=== PATIENT | male | born 1945 | race Caucasian/White ===

== ENCOUNTER → 2016-12-29 | Outpatient (CLI) | payer OTHER, MEDICAID ==
[~2016-12-29] MED LIST: GADOBUTROL 10 ML VIAL IVP ONE; MIDAZOLAM 2 MG/2 ML VIAL ONE; ONDANSETRON 4 MG/2 ML VIAL ONE; fentaNYL 100 MCG/2 ML INJ ONE
[2016-12-29 16:26] VITALS: BP 113/72; RESP 18; O2SAT 94
== END ==
LOC: FIMAGING 13:08
PROVIDERS: ATTEND Neurological Surgery
DX: G20 Parkinson's disease (principal)
CPT/HCPCS: 70552; A9585; J2250; J2405; J3010

== ENCOUNTER 2017-01-05 05:44 | Inpatient (IN) | payer OTHER, MEDICAID ==
[2017-01-05] MEDS ORDERED: CEFUROXIME 1,500 MG in NS 50 ML IV ONE (06:05)
[2017-01-05] MEDS ORDERED: LIDOCAINE 1% 2 ML INJ ID PRN (06:13)
[2017-01-05] MEDS ORDERED: LR 1,000 ML IV ONE (06:13)
--- NOTE | 2017-01-05 06:46 | PDHPUP ---
History & Physical Update H&P update statement: This history and physical update is based on an assessment of the patient which was completed after admission or registration (within 24 hours), but prior to the surgery/procedure.
[2017-01-05] MEDS ORDERED: CHLORHEXIDINE GLUC HIBICLENS 118 ML BTL TP ONE (06:48)
[2017-01-05] MEDS ORDERED: THROMBIN (BOVINE) 20,000 UNIT VIAL TP ONE (06:49)
[2017-01-05] MEDS ORDERED: LIDOCAINE 2% JELLY 20 ML (UROJECT) ONE (06:49)
[2017-01-05] MEDS ORDERED: GENTAMICIN SULFATE 80 MG/2 ML VIAL ONE (06:50)
[2017-01-05] MEDS ORDERED: POVIDONE-IODINE 30 GM OINTTUBE TP ONE (06:50)
[2017-01-05 07:06] LABS: % IMMATURE GRANULYOCYTES 0.2 % (0.0-1.1); ABSOLUTE IMMATURE GRANULOCYTES 0.01 10^3/uL (0.00-0.10); ADD DIFF? NO; ADD MORPH? NO; ADD SCAN? NO; ATYPICAL LYMPHOCYTE FLAG 0 (0-99); FRAGMENT RBC FLAG 0 (0-99); HEMATOCRIT 41.6 % (40.0-51.0); HEMOGLOBIN 14.5 g/dL (13.7-17.5); LEFT SHIFT FLG 0 (0-99); LIPEMIA HEMOLYSIS FLAG 90 (0-99); MEAN CELL HEMOGLOBIN 34.6 pg (27.9-34.1); MEAN CELL HEMOGLOBIN CONCENTR. 34.9 g/dL (32.4-36.7); MEAN CELL VOLUME 99.3 fL (81.5-99.8); MEAN PLATELET VOLUME 9.4 fL (8.7-11.7); PLATELET CLUMPS FLAG 0 (0-99); PLATELET COUNT 245 10^3/uL (150-400); RED BLOOD CELL COUNT 4.19 10^6/uL (4.40-6.38); RED CELL DISTRIBUTION WIDTH 12.2 % (11.5-15.2)
--- NOTE | 2017-01-05 07:06 | PDANEPAE ---
ANE History of Present Illness 71 yo M w Parkinson's Dx here for DBS lead placement ANE Past Medical History - Cardiovascular History Hx Hypertension: No Hx Arrhythmias: No Hx Chest Pain: No Hx Coronary Artery / Peripheral Vascular Disease: No Hx CHF / Valvular Disease: No Hx Palpitations: No Cardiovascular History Comment: denies - Pulmonary History Hx COPD: No Hx Asthma/Reactive Airway Disease: No Hx Recent Upper Respiratory Infection: No Hx Oxygen in Use at Home: No Hx Sleep Apnea: No Sleep Apnea Screening Result - Last Documented: Negative Pulmonary History Comment: denies - Neurologic History Hx Cerebrovascular Accident: No Hx Seizures: No Hx Dementia: No Neurologic History Comment: Parkinson's dx Jan 2016. on NO Rx since . Tremor/stiffness L hand. - Endocrine History Hx Diabetes: No Endocrine History Comment: denies - Renal History Hx Renal Disorders: Yes Renal History Comment: BPH nocturia 2-4x/nite. - Liver History Hx Hepatic Disorders: No Hepatic History Comment: denies - Neurological & Psychiatric Hx Hx Neurological and Psychiatric Disorders: Yes Neurological / Psychiatric History Comment: ruptured lumbar L5 in 1975. Sees chiropractor. 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 inguinal hernia repair 2001 ANE Review of Systems - Exercise capacity Exercise capacity: >=4 METS METS (RN): 5 METS ANE Patient History - Allergies Allergies/Adverse Reactions: No Known Allergies Allergy (Verified 01/02/17 12:25) - Home Medications Home medications: home medication list seen and reviewed Home Medications: Ascorbic Acid [Vitamin C 500 mg (*)] 500 mg PO DAILY 12/29/16 [Last Taken ] Calcium Carb W/Vit D [Calcium Carb W/Vit D 500/200 (*)] 500 mg PO DAILY [Last Taken 12/28/16] Calcium Polycarbophil [FIBERCON] 625 mg PO DAILY PRN 12/29/16 [Last Taken ] Ferrous Sulfate [High Potency Iron] 134 mg PO DAILY 12/29/16 [Last Taken ] Herbals/Supplements -Info Only 1 ea PO DAILY 12/29/16 [Last Taken Unknown] Magnesium Oxide [Magnesium Oxide 500 mg] 500 mg PO DAILY 12/29/16 [Last Taken ] Multivitamins [Multivitamin (*)] 1 each PO DAILY 12/29/16 [Last Taken 12/28/16] [place]-3 Fatty Acids [Fish Oil 1000 mg (*)] 1,000 mg PO DAILY 12/29/16 [Last Taken 12/28/16] Sennosides [Senokot] 8.6 mg PO DAILY PRN 12/29/16 [Last Taken 12/28/16] - NPO status NPO Status: no food or drink >8 hours NPO Since - Liquids (Date): 01/04/17 NPO Since - Liquids (Time): 22:00 NPO Since - Solids (Date): 01/04/17 NPO Since - Solids (Time): 20:00 - Anes Hx Anes Hx: no prior problems - Smoking Hx Smoking Status: Never smoked - Alcohol Use Alcohol Use: None - Family Anes Hx Family Anes Hx: none Family Hx Anesthesia Complications: denies ANE Labs/Vital Signs - Labs Result Diagrams: 01/05/17 06:05 01/05/17 06:05 - Vital Signs Blood Pressure: 130/80 Heart Rate: 68 Respiratory Rate: 18 O2 Sat (%): 100 Height: 184.15 cm Weight: 64.41 kg ANE Physical Exam - Airway Neck exam: FROM Mallampati Score: Class 2 Mouth exam: normal dental/mouth exam - Pulmonary Pulmonary: no respiratory distress, clear to auscultation - Cardiovascular Cardiovascular: regular rate and rhythym, no murmur, rub, or gallop - ASA Status ASA Status: III ANE Anesthesia Plan Anesthesia Plan: MAC Lines/Monitors: arterial line
[2017-01-05] MEDS ORDERED: fentaNYL 100 MCG/2 ML INJ ONE (07:12)
[2017-01-05] MEDS ORDERED: PROPOFOL 200 MG/20 ML VIAL ONE (07:12)
[2017-01-05 07:15] LABS: INR 0.96 (0.83-1.16); PROTIME(PATIENT) 12.7 SEC (12.0-15.0)
[2017-01-05 07:16] LABS: APTT 26.1 SEC (23.0-38.0)
[2017-01-05 07:21] LABS: ANION GAP 11 mEq/L (8-16); CALCIUM 9.7 mg/dL (8.5-10.4); CARBON DIOXIDE 25 mEq/l (22-31); CHLORIDE 103 mEq/L (97-110); CREATININE 0.9 mg/dL (0.7-1.3); GLOMERULAR FILTRATION RATE > 60; GLUCOSE 87 mg/dL (70-100); POTASSIUM 4.2 mEq/L (3.5-5.2); SODIUM 139 mEq/L (134-144)
[2017-01-05] MEDS: BUPIVACAINE/EPI 0.25% 30 ML SDV ONE ×2 (07:30→08:05)
[2017-01-05] MEDS ORDERED: ACETAMINOPHEN 500 MG TAB PO PRN (10:40)
[2017-01-05] MEDS ORDERED: ONDANSETRON 4 MG/2 ML VIAL IVP PRN (10:40)
[2017-01-05] MEDS ORDERED: fentaNYL 100 MCG/2 ML INJ IVP PRN (10:40)
[2017-01-05] MEDS ORDERED: OXYCODONE/APAP 5/325 TAB PO PRN (10:40)
[2017-01-05] MEDS ORDERED: NALOXONE HCL 0.4 MG/ML INJ IVP PRN (10:40)
[2017-01-05] MEDS ORDERED: POLYETHYLENE GLYCOL 3350 17 GM PKT PO PRN (11:00)
[2017-01-05] MEDS ORDERED: LACTULOSE 20 GM/30 ML UDCUP PO PRN (11:00)
[2017-01-05] MEDS ORDERED: NS W/ 20 KCl/L 1,000 ML IV SCH (11:00)
[2017-01-05] MEDS ORDERED: BISACODYL 10 MG SUPP PR PRN (11:00)
[2017-01-05] MEDS ORDERED: MAGNESIUM HYDROXIDE 30 ML UDCUP PO PRN (11:00)
[2017-01-05] MEDS ORDERED: HYDROCODONE/APAP 5/325 TAB PO PRN (11:04)
--- NOTE | 2017-01-05 11:05 | POSTANESTH ---
Post Anesthetic Evaluation Cardiovascular Status: Normal, Stable, Similar to Pre-Op Cond Respiratory Status: Normal, Stable, Similar to Pre-op Cond. Level of Consciousness/Mental Status: Can Participate in Eval, Alert and Oriented Pain Control: Adequate, Prn Tx Ordered Nausea/Vomiting Control: Adequate, Prn Tx Ordered Complications Possibly Related to Anesthesia: None Noted
[2017-01-05] MEDS ORDERED: ONDANSETRON 4 MG/2 ML VIAL ONE (11:18)
--- NOTE | 2017-01-05 12:16 | POSTOPPROG ---
Post Op Note Date of Operation: 01/05/17 Surgeon: Katina Cortez Structural Steel Worker Apprentice: Chery Ch PA-C Anesthesiologist: Phill Pedraza MD Anesthesia: IV Sedation Pre-op Diagnosis: Parkinson's Disease Post-op Diagnosis: Parkinson's Disease Procedure: Right STN DBS lead placement Inf/Abcess present in the surg proc area at time of surgery?: No Depth: Deep Incisional (Fascial) EBL: Minimal Plan Plan: 71 yo male s/p right STN DBS lead placement - neuro checks - pain control - postop head CT stable - maintain SBP < 140 - dispo: home tomorrow Exam Awake. alert. PERRL Speech fluent Muscle strength full Incision with dressing c/d/i
[2017-01-05] MEDS: ACETAMINOPHEN 325 MG TAB PO PRN ×2 (12:59→17:02)
--- NOTE | 2017-01-05 13:37 | GOP ---
[f rep st] OPERATIVE REPORT DATE OF OPERATION: 01/05/2017 SURGEON: Katina Cortez DO PREOPERATIVE DIAGNOSIS: Parkinson disease, tremor predominant. POSTOPERATIVE DIAGNOSIS: Parkinson disease, tremor predominant. PROCEDURE PERFORMED: 1. Right deep brain stimulator lead placement with Medtronic 3389 lead to subthalamic nucleus. 2. Stealth stereotaxis. FELT HAT MELLOWING MACHINE OPERATOR None. MICROELECTRODE RECORDING: Chery Salvador PA-C. Please refer to Chery's dictation for all dariela roelectrode recording. FINDINGS: SPECIMENS: None. ESTIMATED BLOOD LOSS: 10 mL. INDICATIONS: This is a 71-year-old male with a tremor-predominant Parkinson disease, who is intoler ant to medications, who underwent a multidisciplinary evaluation for STN deep brain stimulator lead placement. He was found to be a good candidate, elected to move forward with staged unilateral right for left body for first-stage DBS. He was identified, consented. Sites were marked. DESCRIPTION OF PROCEDURE: Brought to the operating room and anesthetized under local with MAC. Pin sites were anesthetized with 0.25% Marcaine with epinephrine, using povidone iodine ointment, and we stereotactically placed the [place] frame, and then affixed him to the table and brought in the O-a rm 2. Used the O-arm 2 with a localizer box to create a localizer CT, which was merged to the preope rative plan in the stealth frame length software. His ACPC was 27.11. His entry point was an X of 36 .23, a Y of 39.40, Z of 61.19, corresponding to 21 degrees off midsagittal, 56.5 degrees off midaxia l. The target coordinates were X of 10.5, Y of -4.72, and a Z of -5.30. With the registration the pr edicted error was 0.5 mm, and the [place]ell frame coordinates were an X of 87, a Y of 85, a Z of 108.5 , a ring of 72 degrees, an arc of 73 degrees. These were all set and triple checked by all providers in the room. He was prepped and draped in the usual sterile fashion. Incision site was marked using the [place] frame coordinates, and a half-bedolla incision was anesthetized with 0.25% Marcaine with e pinephrine. A half-bedolla incision was made with a 10 blade, and periosteal elevator was used to elevate the perio steum. We then marked the bone opening using the cannula and the Leksell frame coordinates, and dril led a air force pilot hole, then a 14 mm bur hole. Waxed the bone edges. Verified we were in the appropriate p osition. Placed the stem lock device, and locked it in place using the 5 mm Synthes screws. Verified the clipping mechanism, clipped and locked. Opened the dura sharply with an 11 blade. Hemostasis wa s obtained with bipolar cautery. Created a corticotomy with bipolar, and then inserted the center el ectrode, cannula, and stylet, and placed Gelfoam and DuraSeal. Removed the stylet. Placed the electr ode and performed microelectrode recordings. We got approximately 3 mm of STN and entered approximat jdud 1.5 mm above target, suggesting some brain shift. An anterior tract was then selected, 2 mm ante rior, we drove back up to target. We removed the Gelfoam and DuraSeal. Introduced the anterior cannu la and stylet. Removed the stylet, placed the electrode, and leaving the center intact to protect th e integrity, performed another microelectrode. Did not get much of the STN at this point in time at all, and elected to attempt a posterior tract, so drove back up to target. Removed the Gelfoam and DuraSeal. Removed the electrode. Removed the anterior cannula and stylet, and placed it in the poste rior tract, and then removed the stylet. Placed the electrode. Performed another microelectrode mehrdad rding. Got excellent STN with good driving in the posterior tract, with no side effects. At macro st im got approximately 5-1/2 of STN. Elected to place and test the lead here, so initially placing the bottom of the bottom contact where we got out of STN at -4-1/2 below. Given the brain shift, this w as expected. Please refer to the SHOAIB recording, but we did, however, end up leaving the bottom of th e bottom contact approximately 1 below, because we were getting medial eye deviation, suggesting a m edial lead at the more inferior contact. We got tremor control at 1 V at every single contact, and o ur threshold for medial eye deviation on the 0 contact was 3.5 V. Low to no other side effects, and elected to leave the lead here. Took an x-ray with the bombsites, then retracted the stylet, placed the clipping mechanism, clipped and locked the device. Copiously irrigated with gentamicin infused saline. Marked the lead. Removed the internal stylette. Brought the lead down and out. Placed it int o the groove, and placed the stim lock cap. Took another x-ray with the bombsites, verified it was i n good position. Performed a stereotactic spin with the O-arm 2, and then tunneled posteriorly with a periosteal elevator. Anesthetized the stab incision posteriorly with 0.5% Marcaine with epinephrine, and stab incision wa s made with 11 blade. Tunneled posterior to anterior. Placed the boot over the lead, placed the exte nsion over the lead, using the torque wrench at each contact, protecting the contact, locked them in place. Brought the boot over the lead extension complex, tied into position with 2-0 silk ties at 2 positions. Brought the extension posterior and out the wound. Cut it at the skin. Coiled the lead p osterior and around the incision. Took a final x-ray. The lead had not migrated. Copiously irrigated with a liter of gentamicin infused saline. Closed the galea with 2-0 Vicryl pop- offs, the skin with a 3-0 running nylon. The wound was dressed with Xeroform and Telfa. The frame wa s removed and the head wrap was placed. The patient tolerated procedure well. The stereotactic CT revealed exactly what we expected, which w as the lead was 2 mm posterior where we elected to leave the final lead, and approximately a millime ter to a millimeter and a half more medial than initially expected, but well within stereotactic acc uracy. Again, his intraoperative testing was excellent. We had a very programmable lead. The patien t tolerated procedure well. There were no complications. FLUIDS: 1 L crystalloid. URINE OUTPUT: 250 mL. DRAINS: None. COMPLICATIONS: None. /[id number]/MODL
[2017-01-05] MEDS: CEFUROXIME 1,500 MG in NS 50 ML IV SCH ×2 (14:15→21:10)
--- NOTE | 2017-01-05 15:01 | GPN ---
[f rep st] PROCEDURE NOTE DATE OF PROCEDURE: 01/05/2017 PREOPERATIVE DIAGNOSIS: Parkinson disease. POSTOPERATIVE DIAGNOSIS: Parkinson disease. PROCEDURE PERFORMED: Intraoperative functional subcortical mapping by microelectrode recording and stimulation. COMPLICATIONS: None. INDICATION FOR PROCEDURE: Determination of optimal electrode lead placement for deep brain stimulat ion therapy for Parkinson disease to the STN. DESCRIPTION OF PROCEDURE: Following the incision, a rivka hole was drilled on the right side. The a rc was then arranged with the following coordinates of X 87, Y 85, Z 108.5, ring 72 and arc 73. The recording microelectrode was then slowly advanced into the brain using a central tract. There was evidence of entering STN at 1.5 above target and exiting at 1.5 below target. We entered SNR at 3.1 below target. Since we only achieved STN for approximately 3 mm, we decided to proceed with an ant erior tract. With the microelectrode advancing through the anterior tract, there was no evidence of STN. We then proceeded with the posterior tract. There was evidence of entering STN at 1.2 above target. There was change in stimulation with passive range of motion of the shoulder at 0.7 below t arget and with elbow extension at 2.5 below target. There was evidence of entering SNR at 5 below t arget. With these recordings, we elected to proceed with macrostimulation stimulating at 1 below ta rget. At amplitude 1.0, he had resolution of his tremor and at 2.5 he had tingling in his hands. W e then proceeded with placement of the lead and tested the lead with the bottom of the lead at 4.5 b elow target. His tremor was improved at 1.0 at 0 contact, however had sustained tingling at 2.5 amp litude with eye deviation. At 1- contact, he had eye deviation at 2.0 amplitude. We then elected t o move the lead up, placing the bottom of the lead at 3.5 below target. Proceeding with test stimul ation, he had eye deviation at the 1 contact at 2.5 amplitude. At 2-, he had tremor, improved at 1. 0 amplitude with transient tingling in the left hand up to 3.0 amplitude. At 3-, tremor was improve d at 1.0 with left hand tingling. We then elected to again remove the lead up, placing the bottom o f the lead at 1.5 below target. At 1-, tremor was improved at 1.0 amplitude. At 3.5 amplitude, he had evidence of eye deviation. At contact 3, tremor was improved at 1.0. He complained of a pressu re in his head at 2.5 amplitude. Due to the continued eye deviation, we elected to move the lead up 1 more time with the bottom of the lead at 1.0 below target. At the 1 contact, he had eye deviatio n at 3.5 amplitude. Tremor resolved at all contacts at 1.0 amplitude. We elected to leave the lead at this location with the bottom of the lead at 1.0 below target at STN due to the recordings we ob tained, as well as test stimulation, with excellent therapeutic effect with resolution of his tremor . The patient tolerated the surgery well without complication. /[id number]/MODL
[2017-01-05] MEDS ORDERED: traMADol 50 MG TAB PO PRN (17:36)
[2017-01-05] MEDS: SENNOSIDES/DOCUSATE SODIUM TAB PO SCH (21:10)
[2017-01-06] MEDS: ONDANSETRON 4 MG/2 ML VIAL IVP PRN ×2 (01:40→07:34)
[2017-01-06] MEDS: ACETAMINOPHEN 325 MG TAB PO PRN ×3 (01:43→18:38)
[2017-01-06] MEDS ORDERED: SCOPOLAMINE HYDROBROMIDE 1.5 MG PATCH TD ONE (08:26)
[2017-01-06] MEDS ORDERED: PROMETHAZINE HCL 25 MG/ML INJ IVP PRN (08:26)
--- NOTE | 2017-01-06 08:32 | NEUSURGPN ---
Date of Surgery: 01/05/17 Post Op Day: 1 Assessment/Plan: 71 yo male s/p right STN DBS lead placement POD #1 Plan: -continue with ordered neuro checks -pain control-ok with current pain meds -postop head CT stable -maintain SBP < 140 -dispo: home tomorrow -pt with some nausea/vomiting-not able to hold PO down -added O2 NC for pneumocephalus -added phenergan/scopolamine patch -PT/OT ordered -called with any questions or concerns -pt understands and agrees -d/w and seen by Dr Cortez Subjective: Awake and alert. NAD. +N/V. No navarrete/neck/chest/abd or gu complaints. Objective: Awake. alert. PERRL Speech fluent Muscle strength full Incision with dressing c/d/i Neuro Check Frequency: per routine Urinary Catheter in Place: No Catheter Insertion Date: 01/05/17 - Physician Discussed Patient with Dr.: Cortez Patient Seen by : Diego Neurosurgery Physical Exam - Vitals, I&O, Labs I and O 01/05/17 01/06/17 01/07/17 05:59 05:59 05:59 Intake Total 1250 Output Total 3700 Balance -2450 Weight 64.41 kg Intake: Oral (ml) 1250 Output: Urine (ml) 3700 Catheter 3700 Other: Intake Quantity Yes Sufficient Number of Voids Catheter 1 Vital Signs Temp Pulse Resp BP Pulse Ox 36.6 C 69 16 109/74 94 01/06/17 07:19 01/06/17 07:19 01/06/17 07:19 01/06/17 07:19 01/06/17 07:19 Laboratory Results 01/05/17 06:05 01/05/17 06:05 ICD10 Worksheet Patient Problems: Problems Problem Status Onset Parkinsons disease Acute - ICD10 Problem Qualifiers (1) Parkinsons disease
[2017-01-06] MEDS: SENNOSIDES/DOCUSATE SODIUM TAB PO SCH ×2 (09:19→19:53)
[2017-01-07 03:04] VITALS: RESP 16
[2017-01-07 07:10] VITALS: BP 112/70; PULSE 77; TEMP 98.3; O2SAT 98
[2017-01-07] MEDS ORDERED: PATCH REMOVAL 1 EA PATCH TD ONE (08:27)
[2017-01-07] MEDS: SENNOSIDES/DOCUSATE SODIUM TAB PO SCH (09:00)
--- NOTE | 2017-01-07 11:20 | NEUSURGPN ---
Date of Surgery: 01/05/17 Post Op Day: 2 Assessment/Plan: 71 yo male s/p right STN DBS lead placement POD #1 Plan: -pain control-patient feels is under control with Tylenol -postop head CT stable -May dc home today -Removed stapled telfa dressing, new wrap placed and patient may remove tomorrow. -Follow up in 2 weeks for suture removal -call with any questions or concerns -pt understands and agrees -d/w Dr Cortez Subjective: Patient feeling well and ready to go home Objective: Awake. alert. PERRL Speech fluent Muscle strength full Incision c/d/i Neuro Check Frequency: per routine Urinary Catheter in Place: No Catheter Insertion Date: 01/05/17 - Physician Discussed Patient with : Diego Neurosurgery Physical Exam - Vitals, I&O, Labs I and O 01/06/17 01/07/17 01/08/17 05:59 05:59 05:59 Intake Total 1250 400 Output Total 3700 300 275 Balance -2450 100 -275 Weight 64.41 kg Intake: Oral (ml) 1250 400 Output: Urine (ml) 3700 300 275 Catheter 3700 Urinal 300 275 Other: Intake Quantity Yes Yes Sufficient Number of Voids Catheter 1 Toilet 1 1 Urinal 3 Vital Signs Temp Pulse Resp BP Pulse Ox 36.8 C 77 16 112/70 98 01/07/17 07:09 01/07/17 07:09 01/07/17 07:09 01/07/17 07:09 01/07/17 07:09 Laboratory Results 01/05/17 06:05 01/05/17 06:05 ICD10 Worksheet Patient Problems: Problems Problem Status Onset Parkinsons disease Acute
[2017-01-08] MEDS ORDERED: ENOXAPARIN 40 MG/0.4 ML SYR SC SCH (09:00)
== END 2017-01-07 12:36 | disposition home or self-care (01) | DRG 42 ==
LOC: F3N 05:44
PROVIDERS: ADMIT Neurological Surgery; ATTEND Neurological Surgery
PROC: 00HE0MZ Insertion of Neurostimulator Lead into Cranial Nerve, Open Approach (ICD-10-PCS; principal; 2017-01-05 07:15)
DX: G20 Parkinson's disease (principal)
CPT/HCPCS: 97110-GP; 97116-GP; 97161-GP; 97166-GO; 97535-GO; C1713; G8978-GP-CI; G8979-GP-CI; G8980-GP-CI; G8987-GO-CI; G8988-GO-CI; J0697; J2405; J2704; J3010

== ENCOUNTER 2017-02-16 06:12 | Inpatient (IN) | payer OTHER, MEDICAID ==
[~2017-02-16 06:12] MED LIST changes: +CEFUROXIME 1,500 MG in NS 50 ML IV ONE; -GADOBUTROL 10 ML VIAL IVP ONE; -MIDAZOLAM 2 MG/2 ML VIAL ONE; -ONDANSETRON 4 MG/2 ML VIAL ONE; -fentaNYL 100 MCG/2 ML INJ ONE
[2017-02-16] MEDS ORDERED: THROMBIN (BOVINE) 20,000 UNIT VIAL TP ONE (06:50)
[2017-02-16] MEDS ORDERED: CHLORHEXIDINE GLUC HIBICLENS 118 ML BTL TP ONE (06:50)
[2017-02-16] MEDS ORDERED: BUPIVACAINE 0.25% 30 ML SDV ONE (06:50)
[2017-02-16] MEDS ORDERED: GENTAMICIN SULFATE 80 MG/2 ML VIAL ONE (06:51)
[2017-02-16] MEDS ORDERED: POVIDONE-IODINE 30 GM OINTTUBE TP ONE (06:51)
[2017-02-16] MEDS ORDERED: LIDOCAINE 2% JELLY 20 ML (UROJECT) ONE (06:51)
[2017-02-16] MEDS ORDERED: LR 1,000 ML IV ONE (06:55)
[2017-02-16] MEDS ORDERED: LIDOCAINE 1% 2 ML INJ ID PRN (06:55)
[2017-02-16] MEDS ORDERED: NALOXONE HCL 0.4 MG/ML INJ IVP PRN (06:56)
[2017-02-16] MEDS ORDERED: ALBUTEROL 3 ML DEYVIAL IH PRN (06:56)
[2017-02-16] MEDS ORDERED: ONDANSETRON 4 MG/2 ML VIAL IVP PRN (06:56)
[2017-02-16] MEDS ORDERED: ACETAMINOPHEN 500 MG TAB PO PRN (06:56)
--- NOTE | 2017-02-16 06:56 | PDANEPAE ---
ANE History of Present Illness DBS Placement ANE Past Medical History - Cardiovascular History Hx Hypertension: No Hx Arrhythmias: No Hx Chest Pain: No Hx Coronary Artery / Peripheral Vascular Disease: No Hx CHF / Valvular Disease: No Hx Palpitations: No Cardiovascular History Comment: denies - Pulmonary History Hx COPD: No Hx Asthma/Reactive Airway Disease: No Hx Recent Upper Respiratory Infection: No Hx Oxygen in Use at Home: No Hx Sleep Apnea: No Sleep Apnea Screening Result - Last Documented: Negative Pulmonary History Comment: denies - Neurologic History Hx Cerebrovascular Accident: No Hx Seizures: No Hx Dementia: No Neurologic History Comment: Parkinson D.; - Endocrine History Hx Diabetes: No Endocrine History Comment: denies - Renal History Hx Renal Disorders: No Renal History Comment: denies - Liver History Hx Hepatic Disorders: No Hepatic History Comment: denies - Neurological & Psychiatric Hx Hx Neurological and Psychiatric Disorders: No Neurological / Psychiatric History Comment: denies - Cancer History Hx Cancer: Yes Cancer History Comment: melonama x 3; - Congenital Disorder History Hx Congenital Disorders: Yes Congenital History Comment: 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 - GI History Hx Gastrointestinal Disorders: Yes Gastrointestinal History Comment: constipation - Other Health History Other Health History: denies - Chronic Pain History Chronic Pain: No - Surgical History Prior Surgeries: T&A; hernia; full teeth extraction; ANE Review of Systems Review of Systems: - Exercise capacity METS (RN): 5 METS ANE Patient History - Allergies Allergies/Adverse Reactions: No Known Allergies Allergy (Verified 01/02/17 12:25) - Home Medications Home Medications: Ascorbic Acid [Vitamin C 500 mg (*)] 500 mg PO DAILY 12/29/16 [Last Taken ] Calcium Carb W/Vit D [Calcium Carb W/Vit D 500/200 (*)] 500 mg PO DAILY [Last Taken 12/28/16] Calcium Polycarbophil [FIBERCON] 625 mg PO DAILY PRN 12/29/16 [Last Taken ] Ferrous Sulfate [High Potency Iron] 134 mg PO DAILY 12/29/16 [Last Taken ] Herbals/Supplements -Info Only 1 ea PO DAILY 12/29/16 [Last Taken Unknown] Magnesium Oxide [Magnesium Oxide 500 mg] 500 mg PO DAILY 12/29/16 [Last Taken ] Multivitamins [Multivitamin (*)] 1 each PO DAILY 12/29/16 [Last Taken 12/28/16] [place]-3 Fatty Acids [Fish Oil 1000 mg (*)] 1,000 mg PO DAILY 12/29/16 [Last Taken 12/28/16] Sennosides [Senokot] 8.6 mg PO DAILY PRN 12/29/16 [Last Taken 12/28/16] - Smoking Hx Smoking Status: Never smoked - Family Anes Hx Family Hx Anesthesia Complications: denies ANE Labs/Vital Signs - Vital Signs Height: 185.42 cm Weight: 63.503 kg ANE Physical Exam - Airway Neck exam: FROM Mallampati Score: Class 2 - Pulmonary Pulmonary: clear to auscultation - Cardiovascular Cardiovascular: regular rate and rhythym - ASA Status ASA Status: II ANE Anesthesia Plan Anesthesia Plan: GA with mask
[2017-02-16] MEDS ORDERED: PROPOFOL/EMULSION 500 MG/50 ML BOTTLE IV ONE ×2 (07:06→08:32)
[2017-02-16] MEDS ORDERED: DEXMEDETOMIDINE HCL 200 MCG/2 ML VIAL IV ONE (07:12)
[2017-02-16] MEDS ORDERED: PROPOFOL 200 MG/20 ML VIAL ONE (07:43)
[2017-02-16] MEDS ORDERED: PHENYLEPHRINE HCL 100 MCG/ML SYR ONE (08:05)
[2017-02-16] MEDS ORDERED: epHEDrine SULFATE 10 MG/ML SYR ONE (08:36)
[2017-02-16] MEDS ORDERED: ONDANSETRON 4 MG/2 ML VIAL ONE ×2 (09:17→10:49)
[2017-02-16] MEDS ORDERED: BISACODYL 10 MG SUPP PR PRN (10:24)
[2017-02-16] MEDS ORDERED: LACTULOSE 20 GM/30 ML UDCUP PO PRN (10:24)
[2017-02-16] MEDS ORDERED: POLYETHYLENE GLYCOL 3350 17 GM PKT PO PRN (10:24)
[2017-02-16] MEDS ORDERED: MAGNESIUM HYDROXIDE 30 ML UDCUP PO PRN (10:24)
--- NOTE | 2017-02-16 10:26 | POSTANESTH ---
Post Anesthetic Evaluation Cardiovascular Status: Normal, Stable Respiratory Status: Normal, Stable Level of Consciousness/Mental Status: Can Participate in Eval, Mildly Sleepy, Arousable Pain Control: Adequate, Prn Tx Ordered Nausea/Vomiting Control: Adequate, Prn Tx Ordered Complications Possibly Related to Anesthesia: None Noted
[2017-02-16] MEDS ORDERED: traMADol 50 MG TAB PO PRN (10:27)
[2017-02-16] MEDS ORDERED: hydrALAZINE 20 MG/ML VIAL IVP PRN (10:27)
[2017-02-16] MEDS ORDERED: NS W/ 20 KCl/L 1,000 ML IV SCH (10:30)
--- NOTE | 2017-02-16 10:32 | POSTOPPROG ---
Post Op Note Date of Operation: 02/16/17 Surgeon: Katina Cortez Combat Systems Operator: Chery Ch PA-C Anesthesiologist: Terry Tellez Anesthesia: IV Sedation Pre-op Diagnosis: Parkinson's Post-op Diagnosis: Parkinson's Procedure: Left STN DBS lead placment Inf/Abcess present in the surg proc area at time of surgery?: No EBL: Minimal Plan Plan: 71 yo male s/p left STN DBS lead placement for PD - neuro checks - pain control - postop head CT pending - maintain SBP < 140 - dc harrison - dispo: Home tomorrow Exam Awake. Alert. PERRL. Muscle strength full at 5/5 Sensation intact Incision with dressing c/d/i
[2017-02-16] MEDS ORDERED: fentaNYL 100 MCG/2 ML INJ ONE (10:48)
[2017-02-16] MEDS ORDERED: HYDROmorphONE/DILAUDID 1 MG/ML INJ ONE (10:48)
[2017-02-16] MEDS: fentaNYL 100 MCG/2 ML INJ IVP PRN ×3 (10:51→12:34)
[2017-02-16] MEDS: HYDROmorphONE/DILAUDID 1 MG/ML INJ IVP PRN ×2 (11:36→13:39)
--- NOTE | 2017-02-16 12:11 | GPN ---
[f rep st] PROCEDURE NOTE DATE OF PROCEDURE: 02/16/2017 PREOPERATIVE DIAGNOSIS: Parkinson disease. POSTOPERATIVE DIAGNOSIS: Parkinson disease. PROCEDURE PERFORMED: Intraoperative functional subcortical mapping by microelectrode recording and s timulation. COMPLICATIONS: None. INDICATIONS FOR PROCEDURE: Determination of optimal electrode lead placement for deep brain stimulat ion therapy for Parkinson disease to the STN. DESCRIPTION OF PROCEDURE: Following the incision, a bur hole was drilled on the left side. The arc was then arranged with the following coordinates of an X of 110, a Y of 97.5, a Z of 109, a ring of 7 5, an arc of 111.2. The recording microelectrode was then slowly advanced into the brain using a giovanny tral tract. There was no evidence of entering STN and, thus, we proceeded with the posterior tract. There was evidence of cells bursts at 15, 13, and 12.2 above target. There was a slight increase in baseline at 8 above target. We entered STN at 4.5 above target, and there was evidence of exiting S TN at target. Due to the microelectrode recordings that we obtained, we proceeded with macro-stimula tion. He had transient tingling at 2.30 at 2.0 up until 3.0, where it was sustained. We then electe d to place the lead with the bottom of the lead at target due to the excellent microelectrode recordi ngs that we obtained. With test stimulation at 0-, the patient had transient tingling starting at 1. 5 and sustained at 3.0. At 1-, the patient had improved bradykinesia and hand movements at 2.5, with possibly a tugging sensation at his right eye at 3.5. At 2-, the patient had no side effects up to 3.5, at which time he might have developed a tugging sensation in his right eye. At 3-, he had no si de effects up to 3.5. Due to the microelectrode recordings we obtained, as well as the test stimulat ion, we elected to leave the lead at this location at the posterior tract, with the bottom of the sloan d at target. The patient tolerated the surgery well without complication. /[id number]/MODL
--- NOTE | 2017-02-16 13:47 | GOP ---
[f rep st] OPERATIVE REPORT DATE OF OPERATION: 02/15/2017 SURGEON: Katina Cortez DO TRANSIT OPERATIONS SUPERVISOR: None. PREOPERATIVE DIAGNOSIS: Parkinson's. POSTOPERATIVE DIAGNOSIS: Parkinson's. PROCEDURE PERFORMED: 1. Left deep brain stimulator lead placement to STN nucleus. 2. Stealth. 3. Impedances. SHOAIB will be by Chery Ch PA-C. Please refer to her dictation for SHOAIB. FINDINGS: SPECIMENS: None. ESTIMATED BLOOD LOSS: 10 mL. INDICATIONS: This is a 71-year-old male with idiopathic tremor predominant Parkinson's. He was found to be a good candidate for a staged bilateral deep brain stimulator lead placement to the STN. He navarrete d the right side done approximately 1 month ago. He returns for the left side. The right side lead en ded up slightly medial and so we planned a little bit more lateral today with a preoperative Stealth plan. DESCRIPTION OF PROCEDURE: He was identified and consented. Sites were marked. Brought to the operati ng room, anesthetized under local with MAC. Head was cleansed with ChloraPrep. Pin sites were anesthe tized with 0.5% Marcaine with epinephrine. Povidone iodine was used on the pin sites. The [place] fra me was placed stereotactically and spin with the O-arm 2 in the localizer box was performed and merge d to the preoperative plan in the [employer] frame link software. The coordinates were target of an X of -10.4, Y of -4.15, Z of -5.96. The entry point was an X of -39.71, a Y of 31.92, a Z of 59.4, this c orresponded to 24.1 degrees off midsagittal, 61.1 degrees off midaxial. Again, his AC/PC distance was 27.11 mm. This corresponded to [place] frame coordinates of X of 110, a Y of 97.5, a Z of 109, a rin g of 75 degrees and arc of 111.2 degrees. He was prepped and draped in the usual sterile fashion. All [place] frame coordinates were set and triple checked by all providers in the room. Incision site wa s marked using the [place] frame coordinates and a cannula and then a half-bedolla incision was anesthet ized with 0.25% Marcaine with epinephrine. A 10 blade was used to create a half-bedolla incision. Perios teal elevator was used to elevate the periosteum. Jam clips were placed and the rivka hole was marke d. Using the cannula, a shirt presser hole was drilled and then a 14 mm rivka hole was performed. The bone edg es were waxed. We verified it was in the appropriate position. Placed the Stimloc device, locking it in place with 5 mm Synthes screws. Verified the clip clipped and locked. Opened the dura with an 11 b lade and hemostasis was obtained with bipolar cautery. We then inserted the cannula and reducing styl et. Placed Gelfoam and DuraSeal and then placed a microelectrode. Performed microelectrode recordings . Did not get much of the STN here. Based upon the other side, we elected for a posterior tract, and so drove back up, placed the stylet in the existing cannula, removed the Gelfoam and DuraSeal. Placed a 2 mm posterior cannula and stylet, placed Gelfoam and DuraSeal. Removed the internal stylet on the posterior tract. Placed a microelectrode. Performed microelectrode recording. Got excellent STN, jemma roximately 5.5 mm of STN. Elected to perform MacroStim. The patient had a lesional effect with his tr emor predominant symptoms so we had no tremor to test, but we had no side effects, MacroStiming at 2- 1/[address] We elected to place the bottom of the bottom contact at target so we drove to this area, removed the microelectrode, measured and placed the lead. Tested the lead and all impedances were goo d. Tested the lead at all 4 contacts. We had low to no side effect profile and again had no tremor to test, as he had a significant lesional effect. We elected to leave the lead here. Took an x-ray with the bombsite, retracted the cannula after removing the Gelfoam and DuraSeal. Placed the clipping mec dolly, clipped and locked it. Marked the lead. Brought the stylet out, brought the lead down and out . Placed it into the groove. Placed the cap. Took another x-ray. It had not migrated. Performed a chaz reotactic spin with the O-arm, merged it, and the lead was exactly where we would have expected it to be. We placed the boot over the lead extension complex, placed the lead extension, over locked it wi th a torque wrench, protecting each contact with our fingers. Brought the boot over the lead extensio n complex, tied in position with 2-0 silk ties at 2 positions, tunneled posterior with a periosteal e levator. Anesthetized the stab incision with 0.25% Marcaine with epinephrine. Created posterior stab incision, tunneled posterior to anterior and brought the lead extension down and out cutting at the skin, coiling the lead posterior and around the incision. Copiously irrigated with over a liter of ge ntamicin infused saline. Closed the galea with 2-0 Vicryl pop-offs. The skin was closed with 3-0 runn ing nylon. Wound was dressed with Xeroform. The patient was removed from the frame and head wrap was placed. Patient tolerated procedure well. Ag ain had lesional effect. There were no complications. DESCRIPTION OF PROCEDURE: FLUIDS: 600 mL crystalloid. URINE OUTPUT: 150 mL. DRAINS: None. COMPLICATIONS: None. /[id number]/MODL
[2017-02-16] MEDS: ONDANSETRON 4 MG/2 ML VIAL IVP PRN ×2 (15:21→21:46)
[2017-02-16] MEDS: CEFUROXIME 1,500 MG in NS 50 ML IV SCH ×2 (15:25→21:25)
[2017-02-16] MEDS: SENNOSIDES/DOCUSATE SODIUM TAB PO SCH (21:26)
[2017-02-16] MEDS: CYCLOBENZAPRINE 10 MG TAB PO PRN (21:45)
--- NOTE | 2017-02-17 07:10 | NEUSURGPN ---
Date of Surgery: 02/16/17 Post Op Day: 1 Assessment/Plan: 71 yo male s/p left STN DBS lead placement for PD - neuro checks - pain controlled with Tylenol, one dose of IVP morphine given last night - postop head CT stable lead placement - maintain SBP < 140 -removed stapled telfa dressing and changed with 4x4 and tegaderm - May discharge home today Subjective: Patient feeling well this am Objective: Awake. Alert. PERRL Muscle strength full at 5/5 Sensation intact Incision with dressing c/d/i x2 Neuro Check Frequency: per routine Urinary Catheter in Place: No Catheter Insertion Date: 02/16/17 - Physician Discussed Patient with : Diego Neurosurgery Physical Exam - Vitals, I&O, Labs I and O 02/16/17 02/17/17 02/18/17 05:59 05:59 05:59 Intake Total 1250 Output Total 1310 Balance -60 Weight 63.503 kg Intake: Oral (ml) 350 IV Intake (ml) 650 IV Infused (ml) 250 Cefuroxime 1,500 mg In Ns 50 50 ml @ 200 mls/hr IV Q8HRS JOSE Rx#:[id number] NS W/ 20 KCl/L 1,000 ml @ 200 100 mls/hr IV CONT JOSE Rx#:[id number] Output: Urine (ml) 1300 Catheter 1300 Estimated Blood Loss (ml) 10 Other: Intake Quantity Yes Sufficient Vital Signs Temp Pulse Resp BP Pulse Ox 36.8 C 79 16 103/62 95 02/17/17 04:00 02/17/17 04:00 02/17/17 04:00 02/17/17 04:00 02/17/17 04:00 ICD10 Worksheet Patient Problems: Problems Problem Status Onset Parkinsons disease Acute
[2017-02-17] MEDS: ACETAMINOPHEN 325 MG TAB PO PRN ×2 (09:50→20:29)
[2017-02-17] MEDS: SENNOSIDES/DOCUSATE SODIUM TAB PO SCH ×2 (09:51→20:30)
--- NOTE | 2017-02-17 11:38 | ASMTCMCOM ---
CM Note CM Note Notes: Patient was scheduled to discharge today 02/17/17 but patient appeared unstable today and was sent for CAT scan. Now unknown what patients needs will be on discharge. Date Signed: 02/17/2017 11:37 AM Electronically Signed By:CHARY Vasquez
[2017-02-18 00:17] VITALS: TEMP 98.4; O2SAT 93
[2017-02-18 08:00] VITALS: BP 109/67; PULSE 74; RESP 18
[2017-02-18] MEDS: SENNOSIDES/DOCUSATE SODIUM TAB PO SCH (10:26)
[2017-02-18] MEDS: CYCLOBENZAPRINE 10 MG TAB PO PRN (10:30)
[2017-02-18] MEDS: ACETAMINOPHEN 325 MG TAB PO PRN (10:31)
--- NOTE | 2017-02-18 12:37 | NEUSURGPN ---
Date of Surgery: 02/16/17 Post Op Day: 2 Assessment/Plan: 71 yo male s/p left STN DBS lead placement for PD#2 - neuro checks - pain controlled with Tylenol, one dose of IVP morphine given last night - postop head CT stable lead placement - maintain SBP < 140 -removed stapled telfa dressing and changed with 4x4 and tegaderm -patient was experiencing some balance trouble yesterday, repeat head CT done which was stable when compared to post op CT -patient feeling well today - May discharge home today Subjective: feeling well today, sitting up in chair Objective: Awake. Alert. PERRL Muscle strength full at 5/5 Sensation intact Incision with dressing c/d/i x2 Neuro Check Frequency: per routine Urinary Catheter in Place: No Catheter Insertion Date: 02/16/17 - Physician Discussed Patient with DrSergio: Diego Neurosurgery Physical Exam - Vitals, I&O, Labs I and O 02/17/17 02/18/17 02/19/17 05:59 05:59 05:59 Intake Total 1250 1500 Output Total 1310 2050 350 Balance -60 -550 -350 Weight 63.503 kg Intake: Oral (ml) 350 1500 IV Intake (ml) 650 IV Infused (ml) 250 Cefuroxime 1,500 mg In Ns 50 50 ml @ 200 mls/hr IV Q8HRS JOSE Rx#:[id number] NS W/ 20 KCl/L 1,000 ml @ 200 100 mls/hr IV CONT JOSE Rx#:[id number] Output: Urine (ml) 1300 2050 350 Catheter 1300 Urinal 2050 350 Estimated Blood Loss (ml) 10 Other: Intake Quantity Yes Sufficient Number of Voids Toilet 1 1 Urinal 1 1 Vital Signs Temp Pulse Resp BP Pulse Ox 36.9 C 74 18 109/67 93 02/18/17 07:58 02/18/17 07:58 02/18/17 07:58 02/18/17 07:58 02/18/17 07:58 ICD10 Worksheet Patient Problems: Problems Problem Status Onset Parkinsons disease Acute
--- NOTE | 2017-02-18 13:44 | ASDISCHSUM ---
Discharge Information Plan Status:Home with No Needs Medically Cleared to Leave: Discharge Date:02/18/2017 01:35 PM CM D/C Disposition:Home, Routine, Self-Care ADT D/C Disposition:Home, Routine, Self-Care Projected Discharge Date:02/18/2017 12:00 AM Transportation at D/C:Friend Discharge Delay Reason: Follow-Up Date:02/18/2017 12:00 AM Discharge Slot: Final Diagnosis: Placement Information Patient Contact Information Contact Name:RUBA Relationship: Address: Work Phone: City: [facility] Phone: State/Zip Code: Email: Financial Information Financial Class: Primary Plan Desc:MEDICARE INPATIENT Primary Plan Number:[id number] Secondary Plan Desc:MED[place] Secondary Plan Number:[id number] Assessment Information [facility] CM Progress Note CM Note CM Note Notes: Patient was scheduled to discharge today 02/17/17 but patient appeared unstable today and was sent for CAT scan. Now unknown what patients needs will be on discharge. Date Signed: 02/17/2017 11:37 AM Electronically Signed By:CHARY Vasquez [facility] CM Progress Note CM Note CM Note Notes: Pt dc'd home today. I met w/him prior to dc and discussed w/RN. Pt did not feel he needed any HHC. He said friend will be staying overnight with him. PT rec out pt therapy. IM letter delivered. Date Signed: 02/18/2017 01:43 PM Electronically Signed By:Adrienne Graham RN Intervention Information
== END 2017-02-18 13:35 | disposition home or self-care (01) | DRG 27 ==
LOC: F3N 06:12
PROVIDERS: ADMIT Neurological Surgery; ATTEND Neurological Surgery
DX: G20 Parkinson's disease (principal); Z85.820 Personal history of malignant melanoma of skin; K59.00 Constipation, unspecified
CPT/HCPCS: 97116-GP; 97162-GP; 97166-GO; C1713; G8978-GP-CJ; G8979-GP-CI; G8987-GO-CJ; G8988-GO-CH; J0171; J0697; J1170; J2370; J2405; J2704; J3010

== ENCOUNTER 2017-03-23 06:36 | Day surgery (SDC) | payer OTHER, MEDICAID ==
[2017-03-23] MEDS ORDERED: LR 1,000 ML IV ONE (07:25)
[2017-03-23] MEDS ORDERED: CHLORHEXIDINE GLUC HIBICLENS 118 ML BTL TP ONE (07:35)
[2017-03-23] MEDS ORDERED: GENTAMICIN SULFATE 80 MG/2 ML VIAL ONE ×2 (07:35→08:40)
[2017-03-23] MEDS ORDERED: BUPIVACAINE 0.25% 30 ML SDV ONE (07:35)
--- NOTE | 2017-03-23 08:01 | PDANEPAE ---
ANE History of Present Illness Patient presents for DBS generator placement ANE Past Medical History - Cardiovascular History Hx Hypertension: No Hx Arrhythmias: No Hx Chest Pain: No Hx Coronary Artery / Peripheral Vascular Disease: No Hx CHF / Valvular Disease: No Hx Palpitations: No Cardiovascular History Comment: denies - Pulmonary History Hx COPD: No Hx Asthma/Reactive Airway Disease: No Hx Recent Upper Respiratory Infection: No Hx Oxygen in Use at Home: No Hx Sleep Apnea: No Sleep Apnea Screening Result - Last Documented: Negative Pulmonary History Comment: denies - Neurologic History Hx Cerebrovascular Accident: No Hx Seizures: No Hx Dementia: No Neurologic History Comment: Parkinson D.; - Endocrine History Hx Diabetes: No Endocrine History Comment: denies - Renal History Hx Renal Disorders: No Renal History Comment: denies - Liver History Hx Hepatic Disorders: No Hepatic History Comment: denies - Neurological & Psychiatric Hx Hx Neurological and Psychiatric Disorders: No Neurological / Psychiatric History Comment: denies - Cancer History Hx Cancer: Yes Cancer History Comment: melonama x 3; - Congenital Disorder History Hx Congenital Disorders: Yes Congenital History Comment: 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 - GI History Hx Gastrointestinal Disorders: Yes Gastrointestinal History Comment: constipation - Other Health History Other Health History: denies - Chronic Pain History Chronic Pain: No - Surgical History Prior Surgeries: T&A; hernia; full teeth extraction; ANE Review of Systems Review of Systems: - Exercise capacity METS (RN): 5 METS ANE Patient History - Allergies Allergies/Adverse Reactions: No Known Allergies Allergy (Verified 02/20/17 16:28) - Home Medications Home medications: home medication list seen and reviewed Home Medications: Ascorbic Acid [Vitamin C 500 mg (*)] 500 mg PO DAILY 12/29/16 [Last Taken ] Calcium Carb W/Vit D [Calcium Carb W/Vit D 500/200 (*)] 500 mg PO DAILY [Last Taken 02/09/17] Calcium Polycarbophil [FIBERCON] 625 mg PO DAILY PRN 12/29/16 [Last Taken ] Ferrous Sulfate [High Potency Iron] 134 mg PO DAILY 12/29/16 [Last Taken ] Herbals/Supplements -Info Only 1 ea PO DAILY 12/29/16 [Last Taken 02/09/17] Magnesium Oxide [Magnesium Oxide 500 mg] 500 mg PO DAILY 12/29/16 [Last Taken ] Multivitamins [Multivitamin (*)] 1 each PO DAILY 12/29/16 [Last Taken 02/09/17] [place]-3 Fatty Acids [Fish Oil 1000 mg (*)] 1,000 mg PO DAILY 12/29/16 [Last Taken 02/09/17] Sennosides [Senokot] 8.6 mg PO DAILY PRN 12/29/16 [Last Taken 02/09/17] - NPO status NPO Status: no food or drink >8 hours NPO Since - Liquids (Date): 03/22/17 NPO Since - Liquids (Time): 22:00 NPO Since - Solids (Date): 03/22/17 NPO Since - Solids (Time): 19:00 - Smoking Hx Smoking Status: Never smoked - Family Anes Hx Family Hx Anesthesia Complications: denies ANE Labs/Vital Signs - Vital Signs Blood Pressure: 140/78 Heart Rate: 108 Respiratory Rate: 14 O2 Sat (%): 98 Height: 184.15 cm Weight: 64.41 kg ANE Physical Exam - Airway Neck exam: FROM Mallampati Score: Class 2 Mouth exam: normal dental/mouth exam - Pulmonary Pulmonary: no respiratory distress - Cardiovascular Cardiovascular: regular rate and rhythym - ASA Status ASA Status: III ANE Anesthesia Plan Anesthesia Plan: GA w LMA (rba discussed)
[2017-03-23] MEDS ORDERED: ceFAZolin 2 GM/SWFI 2 GM/20 ML SYR IVP ONE (08:21)
[2017-03-23] MEDS ORDERED: ceFAZolin 2 GM/SWFI 20 ML SYR IVP ONE (08:23)
[2017-03-23] MEDS ORDERED: PROPOFOL 200 MG/20 ML VIAL ONE ×2 (08:30→09:40)
[2017-03-23] MEDS ORDERED: fentaNYL 100 MCG/2 ML INJ ONE ×3 (08:30→11:30)
--- NOTE | 2017-03-23 09:12 | PDHPUP ---
History & Physical Update H&P update statement: This history and physical update is based on an assessment of the patient which was completed after admission or registration (within 24 hours), but prior to the surgery/procedure. H&P update: no change in patient's condition since H&P completed
[2017-03-23] MEDS ORDERED: LIDOCAINE 2% 5 ML SDV ONE (09:18)
[2017-03-23] MEDS ORDERED: PHENYLEPHRINE HCL 100 MCG/ML SYR ONE (09:34)
[2017-03-23] MEDS ORDERED: DEXAMETHASONE 4 MG/ML VIAL ONE (09:48)
[2017-03-23] MEDS ORDERED: ONDANSETRON 4 MG/2 ML VIAL ONE ×2 (09:48→11:12)
[2017-03-23] MEDS ORDERED: ACETAMINOPHEN 500 MG TAB PO PRN (10:40)
[2017-03-23] MEDS ORDERED: ONDANSETRON 4 MG/2 ML VIAL IVP PRN (10:40)
[2017-03-23] MEDS ORDERED: NALOXONE HCL 0.4 MG/ML INJ IVP PRN (10:40)
[2017-03-23] MEDS ORDERED: LR 500 ML IV PRN (10:40)
--- NOTE | 2017-03-23 11:00 | POSTANESTH ---
Post Anesthetic Evaluation Cardiovascular Status: Normal, Stable Respiratory Status: Normal, Stable Level of Consciousness/Mental Status: Can Participate in Eval Pain Control: Adequate, Prn Tx Ordered Nausea/Vomiting Control: Adequate, Prn Tx Ordered Complications Possibly Related to Anesthesia: None Noted
--- NOTE | 2017-03-23 11:02 | GOP ---
[f rep st] OPERATIVE REPORT DATE OF OPERATION: SURGEON: Katina Cortez DO PREOPERATIVE DIAGNOSIS: Parkinson disease. POSTOPERATIVE DIAGNOSIS: Parkinson disease. PROCEDURE PERFORMED: FINDINGS: SPECIMENS: None. ESTIMATED BLOOD LOSS: 25 mL INDICATIONS: This is a 71-year-old male with idiopathic Parkinson disease with indwelling deep brain stimulator leads who was found to be a good candidate in multidisciplinary team conference for deep brain stimulation to the STN. He has had bilateral staged STN leads placed. He returns today for ge nerator placement. He was identified and consented. Sites were marked. Brought to the operating ro om, anesthetized under general endotracheal tube anesthesia. Head was turned to the left. Incision sites were marked just lateral to lead extension complex, and at the chest wall. He was prepped and draped in the usual sterile fashion. Incision at the chest was anesthetized with 0.25% Marcaine with epinephrine. Incision was made just lateral to lead extension complex with a 10 blade and this was dissected out with Metzenbaum's and DeBakey's. We then made an incision in the chest wall with a 10 blade and I elected to place the submuscular, as the patient's body habitus is very, very thin and I would be concerned about erosion if we just placed it subfascial, so we dissected through the muscle with Metzenbaum scissors. Hemostasis was obtained with bipolar cautery. We created a subcutaneous p ocket. A submuscular tunnel from the head down to the generator bringing the lead extension up and o ut, cut the stay sutures with an 11 blade, retracted the boot protecting each contact with the torque wrench, removed the boot and extension, placed a new boot, gently dried the lead, placed into the ex tension, locked into place with the torque wrench protecting each contact, brought the boot over the lead extension complex, tied it in position with 2-0 silk ties at two positions, brought it flat agai nst the skull, placed the lead into the generator, locked it into place with the torque wrench. Chec ked impedances, all impedances were good. Copiously irrigated each incision with over a liter each o f gentamicin infused saline. The galea was closed with 2-0 Vicryl pop-offs and the skin at the head was closed with a 3-0 running nylon. At the chest, the fascia was closed with 2-0 Vicryl pop-offs, s ubcutaneous layer with 3-0 Vicryl pop-offs. The skin was closed with Dermabond. The wound at the he ad was dressed with gauze. The patient's head was turned. He was then prepped and redraped on the o pposite side, and the procedure was repeated. Anesthetizing the chest wall with 0.5% Marcaine with e pinephrine, making an incision just lateral to lead extension complex dissecting it out with DeBchaim' s and Tressa's making an incision in the chest wall with a 10 blade and dissecting through the mu scle with Metzenbaum scissors to create a submuscular pocket. We tunneled from the head down to the chest, brought the lead extension up and out, cut the stay sutures with an 11 blade. Discarded these . Retracted the boot, protecting each contact with the torque wrench, removed the lead extension com plex and the boot discarded. He was placed into a new boot, gently dried the lead, placed the extens ion over it locking it into place with the torque wrench, protecting each contact. Brought the boot over the lead extension complex, tied into position with 2-0 silk ties at two positions, placed lead into the generator, locked it into position with a torque wrench. Coiled the wires posterior to the generator. Brought the lead extension complex flat against the skull. Checked impedances, all imped ances were good. Irrigated both incisions with a liter of gentamicin infused saline. Closed the gal ea with 2-0 Vicryl pop-offs, the skin with 3-0 running nylon. The chest closed the fascia with 2-0 V icryl pop-offs, subcutaneous layer with 3-0 Vicryl pop-offs. The skin was closed with 4-0 running Mo nocryl and Dermabond. Both head wounds were dressed with Xeroform, gauze, and Tegaderm and head wrap . Patient tolerated procedure well. No complications. DESCRIPTION OF PROCEDURE: PROCEDURE: 1. Placement of bilateral deep brain stimulator, Medtronic Activa SC generators with connection to i ndwelling STN leads. 2. Impedance x2. FLUIDS: 1 L crystalloid. URINE OUTPUT: None. DRAINS: None. COMPLICATIONS: None. /[id number]/MODL
[2017-03-23] MEDS: fentaNYL 100 MCG/2 ML INJ IVP PRN ×4 (11:03→11:58)
[2017-03-23] MEDS ORDERED: ACETAMINOPHEN 500 MG TAB ONE (11:12)
--- NOTE | 2017-03-23 11:22 | POSTOPPROG ---
Post Op Note Date of Operation: 03/23/17 Surgeon: Katina Cortez Jewelry Manager: Chery Ch PA-C Anesthesia: GET(General Endotracheal) Pre-op Diagnosis: Parkinson's Post-op Diagnosis: Parkinson's Procedure: Bilateral DBS generator implant Inf/Abcess present in the surg proc area at time of surgery?: No Depth: Deep Incisional (Fascial) EBL: Minimal Plan Plan: 71 yo male s/p bilateral DBS generator implant - neuro checks - pain control - advance diet as tolerated - dc home today Exam Awake. Alert Moving all extremities Incisions c/d/i
[2017-03-23] MEDS ORDERED: oxyCODONE IR 5 MG TAB ONE (11:30)
[2017-03-23] MEDS: oxyCODONE IR 5 MG TAB PO PRN ×2 (11:45→12:42)
[2017-03-23 11:58] VITALS: TEMP 98.1
[2017-03-23] MEDS ORDERED: CYCLOBENZAPRINE 10 MG TAB PO ONE (14:00)
[2017-03-23 14:12] VITALS: O2SAT 95
[2017-03-23 15:10] VITALS: BP 136/84; PULSE 84; RESP 12
== END 2017-03-23 15:12 | disposition home or self-care (01) ==
LOC: FSGY 06:36 → F3N 06:36 → UNDOADMIN 06:36 → EDSTATUS 07:15 → FSGY 15:12
PROVIDERS: ATTEND Neurological Surgery
PROC: 0JH60MZ Insertion of Stimulator Generator into Chest Subcutaneous Tissue and Fascia, Open Approach (ICD-10-PCS; principal; 2017-03-23 09:00)
DX: G20 Parkinson's disease (principal)
CPT/HCPCS: C1767; C1787; C1883; J0171; J0690; J1100; J2370; J2405; J2704; J3010